=== PATIENT | male | born 1950 | race Caucasian/White ===

== ENCOUNTER 2018-12-02 18:09 | Emergency (ER) | payer OTHER ==
[2018-12-02 18:21] VITALS: BP 153/92
[2018-12-02] MEDS ORDERED: Diphtheria,Pertussis(Acell),Tetanus Vaccine 0.5 ML Syringe IM ONE (18:26)
[2018-12-02] MEDS ORDERED: cefTRIAXone 1 GM Vial IM ONE (18:26)
--- NOTE | 2018-12-02 18:29 | EDM.PDOC ---
ED HPI GENERAL MEDICAL PROBLEM - General Chief Complaint: Upper Extremity Injury/Pain Stated Complaint: INJURED HAND Time Seen by Provider: 12/02/18 18:26 Source of Information: Reports: Patient - History of Present Illness INITIAL COMMENTS - FREE TEXT/NARRATIVE: HISTORY AND PHYSICAL: History of present illness: [Patient has abrasion on the PIP on the right third digit, he developed the abrasion on Saturday while at work is becoming aimed around its mild redness and tenderness entire lesion is about the size of a quarter no fever nausea vomiting chills sweats no exudate for culture] Patient denies traumatic injury Review of systems: As per history of present illness and below otherwise all systems reviewed and negative. Past medical history: As per history of present illness and as reviewed below otherwise noncontributory. Surgical history: As per history of present illness and as reviewed below otherwise noncontributory. Social history: No reported history of drug or alcohol abuse. Family history: As per history of present illness and as reviewed below otherwise noncontributory. Physical exam: HEENT: Atraumatic, normocephalic, pupils reactive, negative for conjunctival pallor or scleral icterus, mucous membranes moist, throat clear, neck supple, nontender, trachea midline. Lungs: Clear to auscultation, breath sounds equal bilaterally, chest nontender. Heart: S1S2, regular, negative for clicks, rubs, or JVD. Abdomen: Soft, nondistended, nontender. Negative for masses or hepatosplenomegaly. Negative for costovertebral tenderness. Pelvis: Stable nontender. Genitourinary: Deferred. Rectal: Deferred. Extremities: Atraumatic, negative for cords or calf pain. Neurovascular unremarkable. Neuro: Awake, alert, oriented. Cranial nerves II through XII unremarkable. Cerebellum unremarkable. Motor and sensory unremarkable throughout. Exam nonfocal. Superficial abrasion with surrounding cellulitis as per history of present illness otherwise unremarkable Diagnostics: [Patient refused x-ray right hand ] Therapeutics: [T dap 1 g Rocephin IM Bactrim] Impression: [ cellulitis right hand ] Definitive disposition and diagnosis as appropriate pending reevaluation and review of above. - Related Data Allergies Allergy/AdvReac Type Severity Reaction Status Date / Time No Known Allergies Allergy Verified 12/02/18 18:21 Home Meds: Home Meds Aspirin [Jeannette Aspirin EC] 1 tab PO DAILY 10/13/15 [History] Clopidogrel [Plavix] 75 mg PO DAILY 10/13/15 [History] Hydrochlorothiazide 25 mg PO DAILY 06/13/16 [History] Metoprolol Succinate [Toprol XL 50mg] 50 mg PO DAILY 06/13/16 [History] Tamsulosin HCl [Flomax] 0.4 mg PO DAILY #20 cap.er.24h 06/13/16 [Rx] atorvaSTATin Calcium [Atorvastatin Calcium] 20 mg PO DAILY 06/13/16 [History] Past Medical History HEENT History: Reports: None Cardiovascular History: Reports: None Respiratory History: Reports: Sleep Apnea Other Respiratory History: uses CPAP Gastrointestinal History: Reports: Colon Polyp Other Gastrointestinal History: colon polyps Genitourinary History: Reports: None Musculoskeletal History: Reports: None Other Musculoskeletal History: 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 Neurological History: Reports: CVA Other Neuro History: hx stroke 5 to 6 yrs ago Psychiatric History: Reports: None Endocrine/Metabolic History: Reports: Obesity/BMI 30+ Hematologic History: Reports: Blood Transfusion(s) Immunologic History: Reports: None Oncologic (Cancer) History: Reports: None Dermatologic History: Reports: Psoriasis - Infectious Disease History Infectious Disease History: Reports: Measles, Mumps - Past Surgical History Dermatological Surgical History: Reports: Skin Graft Social & Family History - Family History Family Medical History: Noncontributory - Tobacco Use Smoking Status *Q: Current Every Day Smoker Years of Tobacco use: 40 Packs/Tins Daily: 0.5 - Caffeine Use Caffeine Use: Reports: Coffee - Recreational Drug Use Recreational Drug Use: No Review of Systems - Review of Systems Review Of Systems: See Below ED EXAM, GENERAL - Physical Exam Exam: See Below Course - Vital Signs Last Recorded V/S: Last Vital Signs Temp 97.8 F 12/02/18 18:18 Pulse 69 12/02/18 18:18 Resp 18 12/02/18 18:18 BP 153/92 H 12/02/18 18:18 Pulse Ox 92 L 12/02/18 18:18 - Orders/Labs/Meds Orders: Active Orders 24 hr Category Date Time Status Vaccines to be Administered [RC] PER UNIT ROUTINE Care 12/02/18 18:26 Ordered Diphth,Pertuss(Acell),Tet Vac [Adacel] Med 12/02/18 18:26 Once 0.5 ml IM .ONCE ONE cefTRIAXone [Rocephin] Med 12/02/18 18:26 Once 1 gm IM ONETIME ONE Departure - Departure Time of Disposition: 18:28 Disposition: Home, Self-Care 01 Condition: Good Clinical Impression: Cellulitis, Abrasion - Discharge Information Referrals: PCP,None [Primary Care Provider] - Additional Instructions: The following information is given to patients seen in the emergency department who are being discharged to home. This information is to outline your options for follow-up care. We provide all patients seen in our emergency department with a follow-up referral. The need for follow-up, as well as the timing and circumstances, are variable depending upon the specifics of your emergency department visit. If you don't have a primary care physician on staff, we will provide you with a referral. We always advise you to contact your personal physician following an emergency department visit to inform them of the circumstance of the visit and for follow-up with them and/or the need for any referrals to a consulting specialist. The emergency department will also refer you to a specialist when appropriate. This referral assures that you have the opportunity for follow-up care with a specialist. All of these measure are taken in an effort to provide you with optimal care, which includes your follow-up. Under all circumstances we always encourage you to contact your private physician who remains a resource for coordinating your care. When calling for follow-up care, please make the office aware that this follow-up is from your recent emergency room visit. If for any reason you are refused follow-up, please contact the [facility] emergency department at and asked to speak to the emergency department charge nurse. - My Orders Last 24 Hours: My Active Orders 12/02/18 18:26 Vaccines to be Administered [RC] PER UNIT ROUTINE Diphth,Pertuss(Acell),Tet Vac [Adacel] 0.5 ml IM .ONCE ONE cefTRIAXone [Rocephin] 1 gm IM ONETIME ONE - Assessment/Plan Last 24 Hours: My Active Orders 12/02/18 18:26 Vaccines to be Administered [RC] PER UNIT ROUTINE Diphth,Pertuss(Acell),Tet Vac [Adacel] 0.5 ml IM .ONCE ONE cefTRIAXone [Rocephin] 1 gm IM ONETIME ONE
[2018-12-02] MEDS ORDERED: Lidocaine 1% 4 ML ONE (18:33)
== END 2018-12-02 18:59 | disposition home or self-care (01) ==
LOC: MW.ED 18:09
DX: S60.412A Abrasion of right middle finger, initial encounter (principal); L03.011 Cellulitis of right finger; Z23 Encounter for immunization; F17.210 Nicotine dependence, cigarettes, uncomplicated; Z79.82 Long term (current) use of aspirin; Z79.899 Other long term (current) drug therapy; Z86.73 Personal history of transient ischemic attack (TIA), and cerebral infarction without residual deficits; X58.XXXA Exposure to other specified factors, initial encounter
CPT/HCPCS: 90471; 90715; 96372; 99283; J0696

== ENCOUNTER 2020-12-29 02:11 | Emergency (ER) | payer MEDICARE, OTHER ==
[2020-12-29] MEDS ORDERED: Octyl 2-Cyanoacrylate 1 Tube TOP ONE (03:21)
[2020-12-29] MEDS ORDERED: Lactated Ringers 1,000 ML IV SCH (03:30)
--- NOTE | 2020-12-29 04:05 | CR ---
For Patients: As a result of the Cures Act, medical imaging exams and procedure reports are released immediately into your electronic medical record. You may view this report before your referring provider. If you have questions, please contact your health care provider. INDICATION: Dizziness TECHNIQUE: Chest radiograph 1 view COMPARISON: None FINDINGS: Mediastinum: The mediastinum is normal in appearance. The heart silhouette is normal in size and morphology. Lung: Both lungs are unremarkable in appearance. No sign of pleural effusion seen. No pneumothorax is identified. Bone and Soft tissue: Unremarkable for age. IMPRESSION: 1. No acute cardiopulmonary disease is seen. Dictated by: Rashad Hermosillo MD @ 12/29/2020 04:04:22 (Electronically Signed)
[2020-12-29 04:13] LABS: BLOOD UREA NITROGEN,BUN 12 mg/dL (7.0-18.0); CARBON DIOXIDE,CO2 29.6 mmol/L (21.0-32.0); CHLORIDE,CL 102 mmol/L (98-107); GLUCOSE RANDOM 375 mg/dL (74-106); POTASSIUM,K 3.9 mmol/L (3.5-5.1); SODIUM,NA 138 mmol/L (136-148)
[2020-12-29] MEDS ORDERED: Insulin Regular, Human 100 Units/ML 10 ML Vial SUBCUT ONE ×2 (04:51→06:18)
[2020-12-29] MEDS ORDERED: Glucagon,Human Recombinant 1 MG Vial IM PRN ×2 (04:51→06:18)
[2020-12-29] MEDS ORDERED: 50% Dextrose in Water 50 ML Syringe IVPUSH PRN ×2 (04:51→06:18)
--- NOTE | 2020-12-29 05:00 | PCM.EKG ---
#1 Interpretation EKG Date: 12/29/20 Time: 04:44 Rhythm: NSR Rate (Beats/Min): 57 [place]: Normal P-Wave: Present QRS: Normal ST-T: Normal (T wave inversions in leads V3-V5, I, AVL. No elevation >1mm in any lead. No ST depression >1mm in any lead) QT: Normal Comparison: NA - No Prior EKG EKG Interpretation Comments: Sinus Rhythm with Anterior T wave inversions
--- NOTE | 2020-12-29 05:01 | PCM.EKG ---
#1 Interpretation EKG Date: 12/29/20 Time: 03:37 Rhythm: NSR Rate (Beats/Min): 65 [place]: Normal P-Wave: Present QRS: Normal ST-T: Normal (T wave inversions in leads V3-V6, no obvious ST elevation or depression) QT: Normal Comparison: NA - No Prior EKG EKG Interpretation Comments: Sinus Rhythm with lateral T wave inversions. Limited evaluation given baseline wander.
--- NOTE | 2020-12-29 07:00 | EDM.PDOC ---
ED HPI GENERAL MEDICAL PROBLEM - General Chief Complaint: Laceration Stated Complaint: CUT ON LEFT INDEX FINGER Time Seen by Provider: 12/29/20 02:48 - History of Present Illness INITIAL COMMENTS - FREE TEXT/NARRATIVE: CHIEF COMPLAINT(S): Laceration to left index finger HISTORY OF PRESENT ILLNESS: This is a 70-year-old man with a past medical history of hyperlipidemia, hypertension who comes to the emergency department with a chief complaint of laceration to left index finger. The patient states that prior to arrival the patient had accidentally cut it with a knife. He states that his tetanus is up-to-date. He states that he is on Plavix and it continued to bleed so he decided to come to the emergency department. He denies any pain, decreased range of motion, numbness, tingling or weakness. He states that since being in the emergency department the bleeding has stopped. His main concern was the bleeding as it did not stop. REVIEW OF SYSTEMS: Constitutional: Denies fever, chills. Eyes: Denies eye pain Ears, Nose, Mouth, & Throat: Denies earache Cardiovascular: Denies chest pain Respiratory: Denies shortness of breath Gastrointestinal: Denies Nausea, vomiting, diarrhea, hematochezia. Genitourinary: Denies hematuria Skin: Positive for laceration to left index finger MSK: Denies joint pain Neurological: Denies blurred vision, numbness, tingling, weakness psychiatric: Denies depression PAST MEDICAL HISTORY: As per history of present illness and as reviewed below otherwise noncontributory. SURGICAL HISTORY: As per history of present illness and as reviewed below otherwise noncontributory. SOCIAL HISTORY: As per history of present illness and as reviewed below otherwise noncontributory. FAMILY HISTORY: As per history of present illness and as reviewed below otherwise noncontributory. EXAMINATION OF ORGAN SYSTEMS/BODY AREAS: Constitutional: Heart rate 72, respirate 16 with an oxygen saturation 93% on room air. Temperature 36.3. Blood pressure at the time of my evaluation was 130/60. General: Overall well-appearing man who is in no acute distress Psychiatric: Appropriate mood and affect. Eyes: No scleral icterus or conjunctival erythema Cardiovascular: Regular, rate, and rhythm. No gallops, murmurs, or rubs. Bilateral upper extremity pulses symmetric and intact. Respiratory: Lungs clear to auscultation bilaterally. No wheezes, rales, or rhonchi. Musculoskeletal: The patient has full range of motion of his left index finger. There is no tendon exposed. Skin: There is a approximately 1 cm laceration to the lateral aspect of the index finger with no tendon exposed. No active bleeding. Neurological: Alert, GCS 15 distal sensation is intact. MEDICAL DECISION MAKING AND COURSE IN THE ED WITH INTERPRETATION/REVIEW OF DIAGNOSTIC STUDIES: This is a 70-year-old man with a past medical history of hypertension, hyperlipidemia who is on Plavix who comes to the emergency department with accidental laceration to his left index finger which has since stopped bleeding. At this time I did offer the patient laceration repair with stitches. The patient did not want stitches. Therefore at this time he elected for Dermabond with Steri-Strip placement. The wound was cleaned well with soap and water. Laceration Repair Note Repair of the 1cm left index finger wound was done by myself. Wound was irrigated well with saline. No foreign bodies were noted. The wound was repaired with Dermabond while holding the wound edges together. Wound edges did approximate well. After the Dermabond dried we did place Steri-Strips. While I was repairing the patient's laceration with Steri-Strips and Dermabond the patient became diaphoretic and stated that he was dizzy. He denied any chest pain, shortness of breath, abdominal pain, nausea or vomiting. Denies any recent travel or recent surgery. He denies any history of DVT or PE. He states that this is never happened before. He denies a history of CAD, CHF, aortic aneurysm or dissection. At this time I did repeat review of systems and performed a repeat examination REVIEW OF SYSTEMS: Constitutional: Positive for dizziness. Denies fever, chills. Eyes: Denies eye pain Ears, Nose, Mouth, & Throat: Denies earache Cardiovascular: Denies chest pain Respiratory: Denies shortness of breath, cough Gastrointestinal: Denies Nausea, vomiting, diarrhea, hematochezia. Genitourinary: Denies hematuria, dysuria Skin:Denies a rash MSK: Denies joint pain Neurological: Denies blurred vision, numbness, tingling, weakness Psychiatric: Denies depression EXAMINATION OF ORGAN SYSTEMS/BODY AREAS: General: Elderly man who is in no acute distress but is diaphoretic Psychiatric: Appropriate mood and affect. Eyes: No scleral icterus or conjunctival erythema pupils were 3 mm and reactive bilaterally. Extraocular movements intact. No vertical horizontal nystagmus. ENMT: Moist mucous membranes. No pharyngeal erythema Cardiovascular: Regular, rate, and rhythm. No gallops, murmurs, or rubs. Bilateral upper extremity pulses symmetric and intact. No peripheral edema. No JVD. Respiratory: Lungs clear to auscultation bilaterally. No wheezes, rales, or rhonchi. Gastrointestinal: Soft, non-tender, non-distended. Normoactive bowel sounds Genitourinary: No suprapubic tenderness Musculoskeletal: Normal range of motion. Skin: No lesions or abrasions. Neurological: Alert, GCS 15 Cardiac monitoring at this time did reveal a heart rate in sinus rhythm of 66, blood pressure was 96/57 and pulse oximetry with good waveform was 92 to 93% on room air. After this we did take the patient to a different room and laid the patient flat. At this time we did obtain an EKG which did not reveal any acute signs of ischemia. I did discuss with patient I would like to obtain a cardiac work-up given his age and his presentation while repairing his laceration. I did discuss with him that I do believe this is likely secondary to vasovagal syncope as his symptoms have completely resolved by the time we move him to another bed. He was amenable to work-up at this time. He is placed on laboratory monitor and pulse oximetry. We did provide the patient with 1 L of lactated Ringer's bolus. The patient was not hypoglycemic. He was hyperglycemic. Therefore we will continue with fluid hydration. Patient is not on insulin. Laboratory: CBC is unremarkable. D-dimer is negative. BMP is unremarkable except for hyperglycemia at 375, [id number] glucose initially was 333. Magnesium is normal at 1.8. Troponin is negative. The radiological images were viewed by myself along with reading the report from the radiologist. Chest x-ray does not reveal any acute cardiopulmonary process. I did discuss with patient that I would like to repeat the troponin. He was amenable to this plan. On repeat blood sugar the patient's sugar had decreased to 304. At this time this was after 1 L bolus. We will provide the patient with 3 units of subcu insulin at this time and reevaluate blood sugar. After the 3 units the patient's blood sugar was 285. Therefore we will provide the patient with an additional 3 units of subcu insulin. Laboratory: Repeat troponin is negative. On reevaluation patient continued to remain stable throughout his emergency department stay. His oxygen saturation improved on its own. Patient has always been in the 58-63 range for heart rate. At this time I did discuss with him strict return precautions. At this time I do believe his symptoms are likely secondary to vasovagal syncope however I did encourage the patient to follow-up with cardiology soon as possible. He was amenable to discharge at this time and had no further questions. DISPOSITION: The patient was discharged home in stable condition. The patient will follow up with cardiology and primary care physician CONDITION: Fair PROCEDURES: Cardiac monitoring interpretation, pulse oximetry interpretation, left finger laceration repair with Dermabond/Steri-Strips FINAL IMPRESSION(S)/DIAGNOSES: 1. Acute left index finger laceration status post Steri-Strips/Dermabond repair 2. Acute vasovagal episode 3. Hyperglycemia secondary to diabetes mellitus Catalino Kasper M.D. Left Finger-Index Pain Score (Numeric/FACES): 1 - Related Data Allergies Allergy/AdvReac Type Severity Reaction Status Date / Time No Known Allergies Allergy Verified 12/29/20 02:37 Home Meds: Home Meds Aspirin [[place] Aspirin EC] 1 tab PO DAILY 10/13/15 [History] Clopidogrel [Plavix] 75 mg PO DAILY 10/13/15 [History] Hydrochlorothiazide 12.5 mg PO DAILY 06/13/16 [History] Metoprolol Succinate [Toprol XL 50mg] 50 mg PO DAILY 06/13/16 [History] atorvaSTATin Calcium [Atorvastatin Calcium] 20 mg PO DAILY 06/13/16 [History] Past Medical History HEENT History: Reports: None Cardiovascular History: Reports: Hypertension Respiratory History: Reports: Sleep Apnea Other Respiratory History: uses CPAP Gastrointestinal History: Reports: Colon Polyp Other Gastrointestinal History: colon polyps Genitourinary History: Reports: None Musculoskeletal History: Reports: None Other Musculoskeletal History: 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 Neurological History: Reports: CVA Other Neuro History: hx stroke 5 to 6 yrs ago Psychiatric History: Reports: None Endocrine/Metabolic History: Reports: Obesity/BMI 30+ Hematologic History: Reports: Blood Transfusion(s) Immunologic History: Reports: None Oncologic (Cancer) History: Reports: None Dermatologic History: Reports: Psoriasis - Infectious Disease History Infectious Disease History: Reports: Chicken Pox, Mumps - Past Surgical History GI Surgical History: Reports: Colonoscopy Dermatological Surgical History: Reports: Skin Graft Social & Family History - Family History Family Medical History: No Pertinent Family History - Tobacco Use Tobacco Use Status *Q: Former Tobacco User Used Tobacco, but Quit: Yes Month/Year Tobacco Last Used: 2019 - Caffeine Use Caffeine Use: Reports: Coffee - Recreational Drug Use Recreational Drug Use: No ED ROS GENERAL - Review of Systems Review Of Systems: See Below ED EXAM, GENERAL - Physical Exam Exam: See Below Course - Vital Signs Last Recorded V/S: Last Vital Signs Temp 36.3 C 12/29/20 02:38 Pulse 63 12/29/20 07:21 Resp 18 12/29/20 07:21 BP 134/81 12/29/20 07:21 Pulse Ox 96 12/29/20 07:21 - Orders/Labs/Meds Labs: Laboratory Tests 12/29/20 12/29/20 12/29/20 Range/Units 03:26 03:42 03:42 WBC 6.20 (4.0-11.0) K/uL RBC 4.78 (4.50-5.90) M/uL Hgb 15.4 (13.0-17.0) g/dL Hct 43.2 (38.0-50.0) % MCV 90.4 (80.0-98.0) fL MCH 32.2 H (27.0-32.0) pg MCHC 35.6 (31.0-37.0) g/dL RDW Std Deviation 39.8 (28.0-62.0) fl RDW Coeff of David 12 (11.0-15.0) % Plt Count 218 (150-400) K/uL MPV 10.70 (7.40-12.00) fL Neut % (Auto) 36.6 L (48.0-80.0) % Lymph % (Auto) 48.1 H (16.0-40.0) % [place] % (Auto) 9.5 (0.0-15.0) % Eos % (Auto) 5.3 (0.0-7.0) % Baso % (Auto) 0.5 (0.0-1.5) % Neut # (Auto) 2.3 (1.4-5.7) K/uL Lymph # (Auto) 3.0 H (0.6-2.4) K/uL [place] # (Auto) 0.6 (0.0-0.8) K/uL Eos # (Auto) 0.3 (0.0-0.7) K/uL Baso # (Auto) 0.0 (0.0-0.1) K/uL Nucleated RBC % 0.0 /100WBC Nucleated RBCs # 0 K/uL D-Dimer, Quantitative (0.0-0.50) mg/L FEU Sodium 138 (136-148) mmol/L Potassium 3.9 (3.5-5.1) mmol/L Chloride 102 (98-107) mmol/L Carbon Dioxide 29.6 (21.0-32.0) mmol/L BUN 12 (7.0-18.0) mg/dL Creatinine 1.0 (0.8-1.3) mg/dL Est Cr Clr Drug Dosing 77.60 mL/min Estimated GFR (MDRD) > 60.0 ml/min Glucose 375 H (74-106) mg/dL POC Glucose 333 H (70-99) mg/dL Calcium 8.6 (8.5-10.1) mg/dL Magnesium 1.8 (1.8-2.4) mg/dL Troponin I < 0.050 (0.000-0.056) ng/mL Ketones (NEG) 12/29/20 12/29/20 12/29/20 Range/Units 03:42 03:42 04:40 WBC (4.0-11.0) K/uL RBC (4.50-5.90) M/uL Hgb (13.0-17.0) g/dL Hct (38.0-50.0) % MCV (80.0-98.0) fL MCH (27.0-32.0) pg MCHC (31.0-37.0) g/dL RDW Std Deviation (28.0-62.0) fl RDW Coeff of David (11.0-15.0) % Plt Count (150-400) K/uL MPV (7.40-12.00) fL Neut % (Auto) (48.0-80.0) % Lymph % (Auto) (16.0-40.0) % [place] % (Auto) (0.0-15.0) % Eos % (Auto) (0.0-7.0) % Baso % (Auto) (0.0-1.5) % Neut # (Auto) (1.4-5.7) K/uL Lymph # (Auto) (0.6-2.4) K/uL [place] # (Auto) (0.0-0.8) K/uL Eos # (Auto) (0.0-0.7) K/uL Baso # (Auto) (0.0-0.1) K/uL Nucleated RBC % /100WBC Nucleated RBCs # K/uL D-Dimer, Quantitative 0.23 (0.0-0.50) mg/L FEU Sodium (136-148) mmol/L Potassium (3.5-5.1) mmol/L Chloride (98-107) mmol/L Carbon Dioxide (21.0-32.0) mmol/L BUN (7.0-18.0) mg/dL Creatinine (0.8-1.3) mg/dL Est Cr Clr Drug Dosing mL/min Estimated GFR (MDRD) ml/min Glucose (74-106) mg/dL POC Glucose 304 H (70-99) mg/dL Calcium (8.5-10.1) mg/dL Magnesium (1.8-2.4) mg/dL Troponin I (0.000-0.056) ng/mL Ketones NEGATIVE (NEG) 12/29/20 12/29/20 12/29/20 Range/Units 05:24 06:05 06:44 WBC (4.0-11.0) K/uL RBC (4.50-5.90) M/uL Hgb (13.0-17.0) g/dL Hct (38.0-50.0) % MCV (80.0-98.0) fL MCH (27.0-32.0) pg MCHC (31.0-37.0) g/dL RDW Std Deviation (28.0-62.0) fl RDW Coeff of David (11.0-15.0) % Plt Count (150-400) K/uL MPV (7.40-12.00) fL Neut % (Auto) (48.0-80.0) % Lymph % (Auto) (16.0-40.0) % [place] % (Auto) (0.0-15.0) % Eos % (Auto) (0.0-7.0) % Baso % (Auto) (0.0-1.5) % Neut # (Auto) (1.4-5.7) K/uL Lymph # (Auto) (0.6-2.4) K/uL [place] # (Auto) (0.0-0.8) K/uL Eos # (Auto) (0.0-0.7) K/uL Baso # (Auto) (0.0-0.1) K/uL Nucleated RBC % /100WBC Nucleated RBCs # K/uL D-Dimer, Quantitative (0.0-0.50) mg/L FEU Sodium (136-148) mmol/L Potassium (3.5-5.1) mmol/L Chloride (98-107) mmol/L Carbon Dioxide (21.0-32.0) mmol/L BUN (7.0-18.0) mg/dL Creatinine (0.8-1.3) mg/dL Est Cr Clr Drug Dosing mL/min Estimated GFR (MDRD) ml/min Glucose (74-106) mg/dL POC Glucose 285 H 267 H (70-99) mg/dL Calcium (8.5-10.1) mg/dL Magnesium (1.8-2.4) mg/dL Troponin I < 0.050 (0.000-0.056) ng/mL Ketones (NEG) Meds: Medications Discontinued Medications Generic Name Dose Route Start Last Admin Trade Name Freq PRN Reason Stop Dose Admin Dextrose/Water 50 ml 12/29/20 04:51 50% Dextrose In Water 50 Ml Syringe IVPUSH ASDIRECTED PRN Hypoglycemia Dextrose/Water 50 ml 12/29/20 06:18 50% Dextrose In Water 50 Ml Syringe IVPUSH ASDIRECTED PRN Hypoglycemia Glucagon 1 mg 12/29/20 04:51 Glucagon,Human Recombinant 1 Mg Vial IM ASDIRECTED PRN Hypoglycemia Glucagon 1 mg 12/29/20 06:18 Glucagon,Human Recombinant 1 Mg Vial IM ASDIRECTED PRN Hypoglycemia Lactated Ringer's 1,000 mls @ 999 mls/hr 12/29/20 03:30 12/29/20 03:48 Ringers, Lactated IV 999 mls/hr ASDIRECTED JAS Administration Insulin Human Regular 3 unit 12/29/20 04:51 12/29/20 05:05 Insulin Regular, Human 100 Units/Ml 10 Ml Vial SUBCUT 12/29/20 04:52 3 units ONETIME ONE Administration Protocol Insulin Human Regular 3 unit 12/29/20 06:18 12/29/20 06:22 Insulin Regular, Human 100 Units/Ml 10 Ml Vial SUBCUT 12/29/20 06:19 3 units ONETIME ONE Administration Protocol Octyl Cyanoacrylate 1 applic 12/29/20 03:21 12/29/20 03:30 Octyl 2-Cyanoacrylate 1 Tube TOP 12/29/20 03:22 1 applic ONETIME ONE Administration Departure - Departure Time of Disposition: 06:58 Disposition: Home, Self-Care 01 Condition: Fair Clinical Impression: Laceration of finger, Vasovagal episode - Discharge Information *PRESCRIPTION DRUG MONITORING PROGRAM REVIEWED*: No *COPY OF PRESCRIPTION DRUG MONITORING REPORT IN PATIENT ANGEL: No Instructions: Near-Syncope, [id number], Sutures, Margarita, or Adhesive Wound Closure, [id number] Referrals: Flavio Askew MD [Primary Care Provider] - Ivone Bashir MD [Physician] - Forms: ED Department Discharge Additional Instructions: You were evaluated today on an emergent basis. We did repair the laceration to your finger with Dermabond and some Steri-Strips. These will eventually fall off. If you notice any redness, pus drainage I would like you to return to the emergency department. In addition during your visit in the emergency department you did have some sweating and felt like you are going to pass out. Your work- up of your heart was negative however given your age and your risk factors I would like you to follow-up with cardiology. In addition your glucose was very high and I recommend that you follow-up with your primary care physician for further management of your glucose. If you have any repeated episodes like you had this evening, develop chest pain, shortness of breath, or pass out I want you to return immediately to the emergency department. Otherwise please follow- up with your primary care physician. [facility] [address] [place] [address] [place] [id number] [facility] [address] [place] [id number] The patient is informed of any results of their evaluation and diagnostic workup and all questions are answered. They are given discharge instructions and return precautions. The patient is stable for discharge. The patient states they understand and agree with the plan and that they will return if their symptoms get worse or if they have any new concerns. The following information is given to patients seen in the emergency department who are being discharged to home. This information is to outline your options for follow-up care. We provide all patients seen in our emergency department with a follow-up referral. The need for follow-up, as well as the timing and circumstances, are variable depending upon the specifics of your emergency department visit. If you don't have a primary care physician on staff, we will provide you with a referral. We always advise you to contact your personal physician following an emergency department visit to inform them of the circumstance of the visit and for follow-up with them and/or the need for any referrals to a consulting specialist. The emergency department will also refer you to a specialist when appropriate. This referral assures that you have the opportunity for follow-up care with a specialist. All of these measure are taken in an effort to provide you with optimal care, which includes your follow-up. Under all circumstances we always encourage you to contact your private physician who remains a resource for coordinating your care. When calling for follow-up care, please make the office aware that this follow-up is from your recent emergency room visit. If for any reason you are refused follow-up, please contact the [facility] Emergency Department at and asked to speak to the emergency department charge nurse. Sepsis Event Note (ED) - Evaluation Sepsis Screening Result: No Definite Risk
[2020-12-29 07:22] VITALS: BP 134/81; PULSE 63
== END 2020-12-29 07:22 | disposition home or self-care (01) ==
LOC: MW.ED 02:11
DX: S61.211A Laceration without foreign body of left index finger without damage to nail, initial encounter (principal); R55 Syncope and collapse; I10 Essential (primary) hypertension; E78.5 Hyperlipidemia, unspecified; Z79.02 Long term (current) use of antithrombotics/antiplatelets; Z79.82 Long term (current) use of aspirin; E66.9 Obesity, unspecified; Z68.30 Body mass index [BMI] 30.0-30.9, adult; Z79.899 Other long term (current) drug therapy; Z87.891 Personal history of nicotine dependence; W26.0XXA Contact with knife, initial encounter
CPT/HCPCS: 12001; 36415; 71045; 80048; 82009; 82947; 83735; 84484; 85025; 85379; 93005; 99283; A9270; J7120; 93010; 99284; J1815-GY

== ENCOUNTER 2022-09-14 06:34 | Day surgery (SDC) | payer MEDICARE, OTHER ==
[~2022-09-14 06:34] MED LIST: Lactated Ringers 1,000 ML IV SCH
[2022-09-14] MEDS ORDERED: Propofol 200 MG/20 ML SDV ONE (07:34)
[2022-09-14] MEDS ORDERED: Lactated Ringers 1,000 ML IV SCH (09:00)
[2022-09-14 09:38] VITALS: BP 115/69; PULSE 63
== END 2022-09-14 09:25 | disposition home or self-care (01) ==
LOC: MW.SDS 06:34
PROVIDERS: ATTEND Surgery
DX: Z12.11 Encounter for screening for malignant neoplasm of colon (principal); D12.3 Benign neoplasm of transverse colon; D12.8 Benign neoplasm of rectum; K57.30 Diverticulosis of large intestine without perforation or abscess without bleeding; K64.8 Other hemorrhoids; I10 Essential (primary) hypertension; E11.9 Type 2 diabetes mellitus without complications; E78.00 Pure hypercholesterolemia, unspecified; F17.210 Nicotine dependence, cigarettes, uncomplicated; Z86.010 Personal history of colon polyps; Z80.0 Family history of malignant neoplasm of digestive organs; Z79.84 Long term (current) use of oral hypoglycemic drugs; Z79.02 Long term (current) use of antithrombotics/antiplatelets; Z79.899 Other long term (current) drug therapy; Z87.891 Personal history of nicotine dependence
CPT/HCPCS: 45380; 82947; J2704; J7120